=== PATIENT | male | born 1950 | race Caucasian/White ===

== ENCOUNTER 2016-07-30 13:27 | Emergency (ER) | payer MEDICAID ==
[~2016-07-30] VITALS: Ht 170.2 cm; Wt 73.0 kg
[~2016-07-30 13:27] MED LIST: ATEN50TA PO; CIPR-168 PO; DONE5TAB33 PO; GABA-531 PO; GEMF600T3 PO; HYDR25TA PO; IBUP-1510 PO; LEVE500T19 PO; LEVO50TA8 PO; LORA10TA7 PO; METF500T4 PO; PANT40TA4 PO; TERA5CAP4 PO; VERA240C2 PO
[2016-07-30] MEDS ORDERED: NITROGLYCERIN OINT 1GM/INCH UDPKT TD ONE (14:00)
[2016-07-30] MEDS ORDERED: ASPIRIN 81MG TABLET PO ONE (14:00)
[2016-07-30] MEDS ORDERED: HYDRALAZINE 20MG/ML VIAL IV ONE (14:00)
[2016-07-30] MEDS ORDERED: ONDANSETRON HCL 4MG/2ML VIAL IV STA (15:02)
[2016-07-30] MEDS ORDERED: MORPHINE SULFATE 4 MG/ML CPJ (NOT FOR IM USE) IV STA (15:02)
[2016-07-30 15:09] LABS: BASOPHILS % 0.9 % (0.0-2.0); DIFFERENTIAL COMMENT 0; EOSINOPHILS % 1.8 % (0.0-5.0); HEMATOCRIT. 36.3 % (42.0-52.0); HEMOGLOBIN. 11.7 g/dL (14.0-18.0); LYMPHOCYTES % 26.7 % (20.0-50.0); MEAN CORPUSCULAR HGB CONC 32.3 g/dL (31.0-37.0); MEAN CORPUSCULAR VOLUME 77.3 fL (80.0-94.0); MEAN PLATELET VOLUME 8.2 fl (7.4-10.4); MONOCYTES % 9.7 % (2.0-8.0); NEUTROPHILS % 60.9 % (40.0-76.0); PLATELET 285 x1000/uL (130-400); RED CELL DISTRIBUTION WIDTH 14.6 % (11.6-14.6); WHITE BLOOD COUNT 5.1 x1000/uL (4.5-11.0)
[2016-07-30] MEDS ORDERED: NITROGLYCERIN 50MG PREMIX 250 ML IV SCH (15:15)
[2016-07-30 15:17] LABS: INR 1.1; PARTIAL THROMBOPLASTIN TIME 26.8 sec (24.0-34.0); PROTHROMBIN TIME 11.5 sec
[2016-07-30 15:28] LABS: ALANINE AMINOTRANSFERASE 30 IU/L (13-61); ALBUMIN 3.4 g/dL (3.4-5.0); ANION GAP 11; CALCIUM 8.8 mg/dL (8.5-10.1); CARBON DIOXIDE 26 mEq/L (21-32); CHLORIDE 102 mEq/L (98-107); ETHANOL BLOOD < 10 mg/dL; INDEX HEMOLYSI 1 (1-3); INDEX ICTERIC 1 (1-4); INDEX LIPEMIC 1 (1-3); LIPASE 175 IU/L (73-393); NT PRO B-TYPE NATRIURETIC PEP 373 pg/mL (5-125); UREA NITROGEN BLOOD 14 mg/dL (7-21); eGFR > 60 mL/min (>60)
[2016-07-30 15:29] LABS: TROPONIN I 0.91 ng/mL (0.00-0.04)
[2016-07-30] MEDS ORDERED: HEPARIN 5000 UNITS/ML VIAL IV ONE (15:30)
[2016-07-30 15:45] VITALS: BP 152/84
== END 2016-07-30 16:03 | disposition short-term general hospital (02) ==
LOC: ER 15:10
DX: I21.09 ST elevation (STEMI) myocardial infarction involving other coronary artery of anterior wall (principal); I10 Essential (primary) hypertension; E11.9 Type 2 diabetes mellitus without complications; R42 Dizziness and giddiness; E03.9 Hypothyroidism, unspecified; E78.5 Hyperlipidemia, unspecified; D50.9 Iron deficiency anemia, unspecified
CPT/HCPCS: 36415; 70450; 71010; 80053; 82962; 83690; 83880; 84484; 85025; 85610; 85730; 93005; 96365; 96375; 99291; G0482; J0360; J1644; J2270; J2405; J3490; Z7610

== ENCOUNTER 2018-04-03 21:33 | Inpatient (IN) | payer MEDICARE, MEDICAID ==
[~2018-04-03] VITALS: Ht 165.1 cm; Wt 74.4 kg
[~2018-04-03 21:33] MED LIST changes: -GEMF600T3 PO; +GEMF600T4 PO; -IBUP-1510 PO; +IBUP-2030 PO; +METF-414 PO; -METF500T4 PO
[2018-04-03] MEDS ORDERED: ASPIRIN 81MG TABLET PO ONE (23:00)
[2018-04-04 00:06] LABS: BASOPHILS % 0.7 % (0.0-2.0); EOSINOPHILS % 4.1 % (0.0-5.0); HEMATOCRIT. 33.9 % (42.0-52.0); LYMPHOCYTES % 31.7 % (20.0-50.0); MEAN CORPUSCULAR HEMOGLOBIN 25.4 pg (28.0-32.0); MEAN CORPUSCULAR VOLUME 78.1 fL (80.0-94.0); MEAN PLATELET VOLUME 8.1 fl (7.4-10.4); MONOCYTES % 9.7 % (2.0-8.0); NEUTROPHILS % 53.8 % (40.0-76.0); PLATELET 255 x1000/uL (130-400); RED BLOOD CELL COUNT 4.34 mill/uL (4.7-6.1); RED CELL DISTRIBUTION WIDTH 15.1 % (11.6-14.6)
[2018-04-04 00:12] LABS: CHLORIDE 108 mEq/L (98-107)
[2018-04-04 00:36] LABS: INR 1.1; PARTIAL THROMBOPLASTIN TIME 26.2 sec (23.4-31.0); PROTHROMBIN TIME 10.8 sec (9.1-11.1)
[2018-04-04 02:24] LABS: *AMPHETAMINES SCREEN URINE NEGATIVE (NEGATIVE); *BARBITURATES SCREEN URINE NEGATIVE (NEGATIVE); *BENZODIAZEPINES SCREEN URINE NEGATIVE (NEGATIVE); *COCAINE SCREEN URINE NEGATIVE (NEGATIVE); METHADONE URINE SCREEN NEGATIVE (NEGATIVE); OPIATES URINE SCREEN NEGATIVE (NEGATIVE)
[2018-04-04 02:25] LABS: CANNABINOID URINE SCREEN NEGATIVE (NEGATIVE); PHENCYCLIDINE URINE SCREEN NEGATIVE (NEGATIVE)
[2018-04-04 06:20] VITALS: BP 148/76
[2018-04-04 08:00] VITALS: BP 156/74
[2018-04-04 10:01] VITALS: BP 156/74
[2018-04-04 12:00] VITALS: BP 176/82
[2018-04-04] MEDS: LISINOPRIL 5MG TABLET PO SCH (12:20)
[2018-04-04] MEDS: CLOPIDOGREL 75MG TABLET PO SCH (12:20)
[2018-04-04] MEDS: TAMSULOSIN HCL 0.4MG SR CAPSULE PO SCH (12:21)
[2018-04-04] MEDS: ISOSORBIDE MONONITRATE 30MG TABLET SR 24HR PO SCH (12:21)
[2018-04-04] MEDS: ASPIRIN 81MG EC TABLET PO SCH (12:21)
[2018-04-04] MEDS ORDERED: DEXTROSE 50% WATER 50ML SYRINGE IV PRN (12:30)
[2018-04-04] MEDS ORDERED: ONDANSETRON HCL 4MG/2ML INJ IV PRN (12:45)
[2018-04-04] MEDS ORDERED: ACETAMINOPHEN 325MG TABLET PO PRN (12:45)
[2018-04-04] MEDS ORDERED: CLONIDINE 0.1MG TABLET PO PRN (12:45)
[2018-04-04] MEDS ORDERED: INFLUENZA VIRUS VACCINE(AFLURIA) 0.5ML SYR IM ONE (15:00)
[2018-04-04 15:56] LABS: BASOPHILS % 0.7 % (0.0-2.0); EOSINOPHILS % 7.5 % (0.0-5.0); HEMATOCRIT. 35.6 % (42.0-52.0); HEMOGLOBIN. 11.5 g/dL (14.0-18.0); LYMPHOCYTES % 28.9 % (20.0-50.0); MEAN CORPUSCULAR HEMOGLOBIN 25.4 pg (28.0-32.0); MEAN CORPUSCULAR VOLUME 78.7 fL (80.0-94.0); MEAN PLATELET VOLUME 8.1 fl (7.4-10.4); MONOCYTES % 9.5 % (2.0-8.0); NEUTROPHILS % 53.4 % (40.0-76.0); PLATELET 242 x1000/uL (130-400); RED BLOOD CELL COUNT 4.53 mill/uL (4.7-6.1); RED CELL DISTRIBUTION WIDTH 14.8 % (11.6-14.6)
[2018-04-04 16:00] VITALS: BP 134/76
[2018-04-04 16:01] LABS: CHLORIDE 108 mEq/L (98-107)
[2018-04-04] MEDS: INSULIN LISPRO 100 UNITS/ML SUBCUT SCH ×2 (17:15→20:52)
[2018-04-04] MEDS: BLOOD SUGAR DIAGNOSTIC STRIP TEST SCH ×2 (17:44→20:51)
[2018-04-04 20:00] VITALS: BP 145/75
[2018-04-04] MEDS: METOPROLOL TARTRATE 25MG TABLET PO SCH (20:51)
[2018-04-04] MEDS: LOSARTAN POTASSIUM 50 MG TABLET PO SCH (20:52)
[2018-04-04] MEDS ORDERED: ATORVASTATIN CALCIUM 10MG TABLET PO SCH (21:00)
[2018-04-04] MEDS ORDERED: PNEUMOCOCCAL 23-VAL P-SAC VAC 0.5 ML IM ONE (22:30)
[2018-04-05] VITALS: BP 130/68
[2018-04-05 04:00] VITALS: BP 108/63
[2018-04-05] MEDS: INSULIN LISPRO 100 UNITS/ML SUBCUT SCH ×2 (06:04→12:15)
[2018-04-05] MEDS: BLOOD SUGAR DIAGNOSTIC STRIP TEST SCH ×2 (06:04→11:45)
[2018-04-05 07:27] LABS: BASOPHILS % 0.6 % (0.0-2.0); EOSINOPHILS % 6.2 % (0.0-5.0); HEMATOCRIT. 36.8 % (42.0-52.0); LYMPHOCYTES % 17.7 % (20.0-50.0); MEAN CORPUSCULAR HEMOGLOBIN 25.4 pg (28.0-32.0); MEAN CORPUSCULAR VOLUME 77.9 fL (80.0-94.0); MEAN PLATELET VOLUME 8.3 fl (7.4-10.4); MONOCYTES % 6.4 % (2.0-8.0); NEUTROPHILS % 69.1 % (40.0-76.0); PLATELET 247 x1000/uL (130-400); RED BLOOD CELL COUNT 4.73 mill/uL (4.7-6.1)
[2018-04-05 08:00] VITALS: BP 160/70
[2018-04-05 08:02] LABS: CHLORIDE 103 mEq/L (98-107)
[2018-04-05] MEDS ORDERED: FAMOTIDINE 20MG TABLET PO SCH (09:00)
[2018-04-05] MEDS: CLOPIDOGREL 75MG TABLET PO SCH (09:49)
[2018-04-05] MEDS: LISINOPRIL 5MG TABLET PO SCH (09:49)
[2018-04-05] MEDS: LOSARTAN POTASSIUM 50 MG TABLET PO SCH (09:49)
[2018-04-05] MEDS: METOPROLOL TARTRATE 25MG TABLET PO SCH (09:50)
[2018-04-05] MEDS: ISOSORBIDE MONONITRATE 30MG TABLET SR 24HR PO SCH (09:53)
[2018-04-05] MEDS: ASPIRIN 81MG EC TABLET PO SCH (09:53)
[2018-04-05] MEDS: TAMSULOSIN HCL 0.4MG SR CAPSULE PO SCH (09:53)
[2018-04-05 12:00] VITALS: BP 141/67
[2018-04-05 15:06] VITALS: BP 128/65
== END 2018-04-05 16:05 | disposition left against medical advice (07) | DRG 313 ==
LOC: ER 21:33 → EDBEDREQ 23:30 → 5WST 04-04 01:12 → EDBEDREQ 04-04 01:54 → ENRESERV 04-04 04:46
PROVIDERS: ADMIT Internal Medicine; ATTEND Internal Medicine
DX: R07.89 Other chest pain (principal); E07.9 Disorder of thyroid, unspecified; E11.9 Type 2 diabetes mellitus without complications; E78.00 Pure hypercholesterolemia, unspecified; E78.5 Hyperlipidemia, unspecified; E87.6 Hypokalemia; I11.9 Hypertensive heart disease without heart failure; I25.10 Atherosclerotic heart disease of native coronary artery without angina pectoris; K21.9 Gastro-esophageal reflux disease without esophagitis; Z53.21 Procedure and treatment not carried out due to patient leaving prior to being seen by health care provider; N40.0 Benign prostatic hyperplasia without lower urinary tract symptoms; Z95.5 Presence of coronary angioplasty implant and graft; Z87.891 Personal history of nicotine dependence; Z87.828 Personal history of other (healed) physical injury and trauma; I25.2 Old myocardial infarction; Z79.02 Long term (current) use of antithrombotics/antiplatelets; Z79.82 Long term (current) use of aspirin; Z79.84 Long term (current) use of oral hypoglycemic drugs; Z79.899 Other long term (current) drug therapy; Z82.49 Family history of ischemic heart disease and other diseases of the circulatory system; Z83.3 Family history of diabetes mellitus
CPT/HCPCS: 36415; 71045; 80048; 80305; 82962; 83036; 83880; 84484; 90686; 90732; 93005; 93306; 99285

== ENCOUNTER 2022-04-17 09:34 | Inpatient (IN) | payer MEDICARE, MEDICAID ==
[~2022-04-17] VITALS: Ht 165.1 cm; Wt 54.4 kg
[~2022-04-17 09:34] MED LIST changes: -CIPR-168 PO; +CIPR250T4 PO; -GABA-531 PO; +GABA-532 PO; -GEMF600T4 PO; +GEMF600T90 PO; -PANT40TA4 PO; +PANT40TA51 PO
[2022-04-17] MEDS ORDERED: KETOROLAC 30MG/ML VIAL IV STA (09:54)
[2022-04-17 10:51] LABS: BASOPHILS % 0.5 % (0.0-2.0); EOSINOPHILS % 2.3 % (0.0-5.0); HEMATOCRIT. 40.6 % (42.0-52.0); HEMOGLOBIN. 13.1 g/dL (14.0-18.0); LYMPHOCYTES % 25.1 % (20.0-50.0); MEAN CORPUSCULAR HEMOGLOBIN 26.7 pg (28.0-32.0); MEAN CORPUSCULAR VOLUME 82.7 fL (80.0-94.0); MEAN PLATELET VOLUME 7.7 fl (7.4-10.4); MONOCYTES % 11.6 % (2.0-8.0); NEUTROPHILS % 60.5 % (40.0-76.0); PLATELET 233 x1000/uL (130-400); RED BLOOD CELL COUNT 4.91 mill/uL (4.7-6.1)
[2022-04-17 10:54] LABS: CHLORIDE 105 mEq/L (98-107)
[2022-04-17 11:01] LABS: INR 1.1; PROTHROMBIN TIME 11.5 sec (9.6-11.0)
[2022-04-17] MEDS ORDERED: KETOROLAC 30MG/ML VIAL IV NR (11:45)
[2022-04-17] MEDS ORDERED: ONDANSETRON HCL 4MG/2ML INJ IV PRN (15:30)
[2022-04-17] MEDS ORDERED: ACETAMINOPHEN 325MG TABLET PO PRN ×2 (15:30)
[2022-04-17] MEDS ORDERED: MAGNESIUM/ALUMINUM HYDROXIDE/SIMETHICONE 30ML UDC PO PRN (15:30)
[2022-04-17] MEDS ORDERED: HYDROCODONE/ACETAMINOPHEN 5/325MG TABLET PO PRN (15:30)
[2022-04-17] MEDS ORDERED: IPRATROPIUM/ALBUTEROL 0.5-3(2.5)MG/3ML NEB NEB PRN (15:30)
[2022-04-17] MEDS ORDERED: DOCUSATE SODIUM 100MG CAPSULE PO PRN (15:30)
[2022-04-17] MEDS ORDERED: GUAIFENESIN 200MG/10ML SUGAR FREE UDC PO PRN (15:30)
[2022-04-17] MEDS ORDERED: CLONIDINE 0.1MG TABLET PO PRN (15:30)
[2022-04-17] MEDS ORDERED: NALOXONE HCL 0.4MG/ML VIAL IV PRN (15:45)
[2022-04-17] MEDS: PANTOPRAZOLE SODIUM 40 MG/VIAL IV SCH (16:16)
[2022-04-17 17:15] LABS: GAMMA GLUTAMYL TRANSPEPTIDASE 24 IU/L (11-50); TOTAL IRON BINDING CAPACITY 369 ug/dL (250-450)
[2022-04-17 17:45] VITALS: BP 182/69
[2022-04-17 17:57] VITALS: BP 182/69
[2022-04-17 18:34] VITALS: BP 123/59
[2022-04-17] MEDS ORDERED: PENT400T16 PO (19:23)
[2022-04-17] MEDS ORDERED: METO-385 PO (19:24)
[2022-04-17] MEDS ORDERED: LEVO75TA PO (19:24)
[2022-04-17] MEDS ORDERED: AMLO5TAB88 PO (19:25)
[2022-04-17] MEDS ORDERED: ISOS120T9 PO (19:25)
[2022-04-17] MEDS ORDERED: COR6 PO (19:26)
[2022-04-17] MEDS ORDERED: MELO-106 PO (19:26)
[2022-04-17] MEDS ORDERED: DONE10TA11 PO (19:27)
[2022-04-17] MEDS ORDERED: CLOP-31 PO (19:28)
[2022-04-17] MEDS ORDERED: MEMA10TA55 PO (19:28)
[2022-04-17] MEDS ORDERED: LOSA100T32 PO (19:29)
[2022-04-17] MEDS ORDERED: FINA5TAB11 PO (19:29)
[2022-04-17] MEDS ORDERED: ESCI-7 PO (19:30)
[2022-04-17] MEDS ORDERED: INFLUENZA VACCINE 05/PF 0.5 ML SYRINGE IM ONE (19:30)
[2022-04-17] MEDS ORDERED: RANO10003 PO (19:30)
[2022-04-17] MEDS ORDERED: DEXL60CA3 PO (19:33)
[2022-04-17] MEDS ORDERED: LINA290C PO (19:34)
[2022-04-17] MEDS ORDERED: MIRA25TA PO (19:34)
[2022-04-17] MEDS ORDERED: EMPA25TA PO (19:35)
[2022-04-17] MEDS ORDERED: EZET10TA13 PO (19:36)
[2022-04-17] MEDS ORDERED: ROSU40TA PO (19:36)
[2022-04-17] MEDS ORDERED: TAMS-11 PO (19:37)
[2022-04-17] MEDS ORDERED: ALBUTEROL (0.083%) 2.5MG/3ML NEB HHN PRN (19:45)
[2022-04-17] MEDS ORDERED: IPRATROPIUM BROMIDE (0.02%) 0.5MG/2.5ML NEB HHN PRN (19:45)
[2022-04-17 19:54] LABS: HEPATITIS B SURFACE ANTIGEN NEGATIVE
[2022-04-17 20:00] VITALS: BP 128/60
[2022-04-17] MEDS: ENOXAPARIN 40MG/0.4ML SYR SUBCUT SCH (20:46)
[2022-04-17 22:06] LABS: CLARITY URINE CLEAR (CLEAR); COLOR URINE DARK YELLOW (YELLOW); KETONES URINE TRACE (NEGATIVE); LEUKOCYTE ESTERASE URINE NEGATIVE (NEGATIVE); NITRITE URINE NEGATIVE (NEGATIVE); OCCULT BLOOD URINE NEGATIVE (NEGATIVE); PH URINE 5.5 (4.5-8.0); PROTEIN URINE NEGATIVE (NEGATIVE); SPECIFIC GRAVITY URINE 1.043 (1.005-1.030); UROBILINOGEN URINE 0.2 E.U./dL (0.2-1.0)
[2022-04-18] VITALS: BP 145/80
[2022-04-18 04:00] VITALS: BP 99/59
[2022-04-18 06:42] LABS: BASOPHILS % 0.8 % (0.0-2.0); HEMATOCRIT. 38.8 % (42.0-52.0); LYMPHOCYTES % 44.9 % (20.0-50.0); MEAN CORPUSCULAR HEMOGLOBIN 27.4 pg (28.0-32.0); MEAN CORPUSCULAR VOLUME 81.7 fL (80.0-94.0); MEAN PLATELET VOLUME 7.9 fl (7.4-10.4); MONOCYTES % 12.8 % (2.0-8.0); NEUTROPHILS % 34.5 % (40.0-76.0); PLATELET 226 x1000/uL (130-400); RED BLOOD CELL COUNT 4.74 mill/uL (4.7-6.1); RED CELL DISTRIBUTION WIDTH 14.6 % (11.6-14.6)
[2022-04-18] MEDS ORDERED: BARIUM SULFATE 176 GM SUSP.RECON ONE (08:34)
[2022-04-18] MEDS ORDERED: BARIUM SULFATE(VOLUMEN) 450 ML ORAL.SUSP ONE (08:35)
[2022-04-18] MEDS: PANTOPRAZOLE SODIUM 40 MG/VIAL IV SCH (08:52)
[2022-04-18 12:00] VITALS: BP 121/64
[2022-04-18 14:01] LABS: CHLORIDE 103 mEq/L (98-107)
[2022-04-18 14:18] LABS: HDL CHOLESTEROL 50 mg/dL (40-59); LDL CHOLESTEROL 95 mg/dL (5-100); T4 FREE 1.02 ng/dL (0.76-1.46)
[2022-04-18 16:00] VITALS: BP 167/72
[2022-04-18 16:43] LABS: VITAMIN B12 SERUM 456 pg/mL (211-911)
[2022-04-18 20:00] VITALS: BP 145/73
[2022-04-18] MEDS: ENOXAPARIN 40MG/0.4ML SYR SUBCUT SCH (21:35)
[2022-04-19] VITALS: BP 111/70
[2022-04-19 04:20] VITALS: BP 138/68
[2022-04-19 06:34] LABS: BASOPHILS % 1.2 % (0.0-2.0); EOSINOPHILS % 4.8 % (0.0-5.0); HEMATOCRIT. 38.7 % (42.0-52.0); LYMPHOCYTES % 42.8 % (20.0-50.0); MEAN CORPUSCULAR HEMOGLOBIN 27.3 pg (28.0-32.0); MEAN CORPUSCULAR VOLUME 81.4 fL (80.0-94.0); MEAN PLATELET VOLUME 7.9 fl (7.4-10.4); MONOCYTES % 13.6 % (2.0-8.0); NEUTROPHILS % 37.6 % (40.0-76.0); PLATELET 216 x1000/uL (130-400); RED BLOOD CELL COUNT 4.76 mill/uL (4.7-6.1); RED CELL DISTRIBUTION WIDTH 14.7 % (11.6-14.6)
[2022-04-19 07:59] LABS: CHLORIDE 105 mEq/L (98-107)
[2022-04-19 08:00] VITALS: BP 144/72
[2022-04-19] MEDS: PANTOPRAZOLE SODIUM 40 MG/VIAL IV SCH (08:55)
[2022-04-19 12:00] VITALS: BP 160/75
[2022-04-19] MEDS ORDERED: WHEA152P PO (14:16)
[2022-04-19 14:38] VITALS: BP 160/75
[2022-04-21 04:07] LABS: OVA & PARASITE EXAM Final report (.)
== END 2022-04-19 15:35 | disposition home or self-care (01) | DRG 392 ==
LOC: ER 09:34 → EDBEDREQTM 13:38 → EDBEDREQ 13:38 → SUPCPDRO 13:48 → ENRESERV 14:41 → 8WST 17:02
PROVIDERS: ADMIT Internal Medicine; ATTEND Internal Medicine
DX: K20.90 Esophagitis, unspecified without bleeding (principal); Q39.6 Congenital diverticulum of esophagus; K59.00 Constipation, unspecified; E11.9 Type 2 diabetes mellitus without complications; Z20.822 Contact with and (suspected) exposure to COVID-19; E78.00 Pure hypercholesterolemia, unspecified; I10 Essential (primary) hypertension; K21.9 Gastro-esophageal reflux disease without esophagitis; D64.9 Anemia, unspecified; I25.2 Old myocardial infarction; Z82.49 Family history of ischemic heart disease and other diseases of the circulatory system; Z83.3 Family history of diabetes mellitus
CPT/HCPCS: 36415; 71045; 74176; 74220; 76700; 80048; 80053; 80061; 81003; 82270; 82306; 82607; 82728; 82746; 82977; 83036; 83540; 83550; 83735; 84100; 84439; 84443; 85025; 85044; 86803; 87015; 87045; 87177; 87209; 87340; 87426; 87427; 87449; 89055; 93005; 99285; C9113; C9803; J1650; J1885